=== PATIENT | female | born 1995 | race Caucasian/White ===

== ENCOUNTER → 2020-05-17 | Outpatient (CLI) | payer OTHER ==
--- NOTE | 2020-05-17 15:42 | US ---
EXAMINATION TYPE: US pelvic complete DATE OF EXAM: 05/17/2020 COMPARISON: NONE CLINICAL HISTORY: D25.9 LEIOMYOMA OF UTERUS. TECHNIQUE: Transabdominal (TA). Transabdominal sonographic images of the pelvis were acquired. Date of LMP: 04/17/20 EXAM MEASUREMENTS: Uterus: 7.9 x 3.7 x 4.3 cm Endometrial Stripe: 1.0 cm Right Ovary: 4.5 x 1.6 x 1.9 cm Left Ovary: 3.0 x 1.3 x 1.9 cm 1. Uterus: Anteverted, hypoechoic area 1.2 x 0.9 x 1.2cm, probable fibroid 2. Endometrium: wnl 3. Right Ovary: wnl 4. Left Ovary: wnl 5. Bilateral Adnexa: wnl 6. Posterior cul-de-sac: wnl IMPRESSION: Probable leiomyomatous change of the uterus.
== END | disposition home or self-care (01) ==
LOC: MERGE 15:00 → RADUSWWP 15:04
PROVIDERS: ATTEND Family Medicine
DX: D25.9 Leiomyoma of uterus, unspecified (principal)
CPT/HCPCS: 76856

== ENCOUNTER 2022-11-07 09:38 | Inpatient (IN) | payer BC ==
[2022-11-07] MEDS ORDERED: CARBOPROST TROMETHAMINE 250 MCG/ML 1 ML AMP IM PRN (10:34)
[2022-11-07] MEDS ORDERED: LIDOCAINE 0.5% (PF) 5 MG/ML (50 ML SDV) SQ PRN (10:34)
[2022-11-07] MEDS ORDERED: miSOPROStoL 200 MCG TAB PO PRN (10:34)
[2022-11-07] MEDS ORDERED: OXYTOCIN 10 UNIT/ML 1 ML VIAL IM PRN (10:34)
[2022-11-07] MEDS ORDERED: TRANEXAMIC ACID IN NACL,ISO-OS 1,000 MG in EMPTY BAG 1 BAG IV PRN (10:34)
[2022-11-07] MEDS ORDERED: METHYLERGONOVINE 0.2 MG/ML 1 ML AMP IM PRN (10:34)
[2022-11-07] MEDS ORDERED: TERBUTALINE 1 MG/ML VIAL SQ PRN (10:34)
[2022-11-07] MEDS ORDERED: OXYTOCIN 30 UNITS/500 ML NS 30 UNIT in SALINE 1 500ML.BAG IV SCH (10:45)
[2022-11-07] MEDS: LACTATED RINGERS 1,000 ML IV SCH ×2 (11:22→16:47)
[2022-11-07 11:43] LABS: Basophils % (A) 0 %; Eosinophils % (A) 0 %; HCT 42.9 % (34.0-46.0); HGB 14.3 gm/dL (11.4-16.0); Lymphocytes # (A) 1.3 k/uL (1.0-4.8); Lymphocytes % (A) 14 %; MCH 31.2 pg (25.0-35.0); MCHC 33.4 g/dL (31.0-37.0); MCV 93.3 fL (80.0-100.0); Mean Platelet Volume 8.5; Monocytes # (A) 0.5 k/uL (0-1.0); Monocytes % (A) 5 %; Neutrophils # (A) 7.2 k/uL (1.3-7.7); Neutrophils % (A) 79 %; Platelet Count 186 k/uL (150-450); RDW 12.7 % (11.5-15.5); WBC 9.1 k/uL (3.8-10.6)
--- NOTE | 2022-11-07 12:01 | P.HPOB ---
History of Present Illness H&P Date: 11/07/22 Chief Complaint: My water broke this morning. This is a 27-year-old female 1 para 0 EDC 11/09/2022 at 39-5/7 weeks' gestation. Patient states her water broke this morning, large gush of clear fluid. She denies vaginal bleeding or uterine contractions at this time. Fetus is been active throughout the . She has continued to leak fluid. Past medical history is significant for fibroids and vitiligo. Past surgical history tubes in the ears, wisdom teeth extracted, adenoidectomy. Current medications vitamins daily. ALLERGIES none known. Past social history patient is , her Pravin is present and involved. She works for the [employer] as a nurse. She has never been a smoker and denies alcohol or drug use. Family history hyperlipidemia, hypothyroidism, breast cancer, renal syndrome, scleroderma, sclerosis. Obstetric history is significant for negative group B strep cultures, negative urine culture, negative gonorrhea and chlamydia cultures, Pap smear normal. Blood type O positive, rubella status immune. VDRL testing, hepatitis B surface antigen HIV testing all negative. On exam patient is 5 foot 6 inches, 187 pounds, initial blood pressure slightly elevated at 158/97, repeat blood pressure normalized. General physical exam is within normal limits. Chest is clear in all champion. Cervix is 2-3 cm dilated, 60% effaced, -2 station, vertex presentation. Clear fluid noted on the perineal body. heart rate consistent with reactive NST. Impression: 39-5/7 weeks intrauterine , active spontaneous labor. All signs reassuring. Group B strep cultures negative. Plan: Oxytocin per hospital protocol. Close maternal and surveillance. Analgesic options reviewed. Anticipate normal spontaneous vaginal delivery. Review of Systems Constitutional: Reports as per [facility] Medications and Allergies Home Medications Medication Instructions Recorded Confirmed Type Levothyroxine Sodium [Synthroid] 25 mcg PO DAILY 11/07/22 11/07/22 History Allergies Allergy/AdvReac Type Severity Reaction Status Date / Time No Known Allergies Allergy Verified 11/07/22 10:21 Exam Vital Signs Temp Pulse Resp BP Pulse Ox 11/07/22 09:54 98 F 66 16 163/96 100 Intake and Output 11/06/22 11/07/22 11/07/22 22:59 06:59 14:59 Other: Weight 83.461 kg See dictation under HPI please Results Result Diagrams: 11/07/22 11:15 Assessment and Plan Assessment: 39-5/7 weeks intrauterine , early spontaneous labor. All signs reassuring. Plan: Oxytocin per hospital protocol. Close maternal and surveillance. Analgesic options reviewed. Anticipate normal spontaneous vaginal delivery. Time with Patient: Less than 30
[2022-11-07 12:06] LABS: Uric Acid 5.2 mg/dL (3.7-7.4)
[2022-11-07] MEDS ORDERED: SODIUM CHLORIDE 0.9% 100 ML BAG ONE (16:51)
[2022-11-07] MEDS ORDERED: ROPIVACAINE 5 MG/ML 20 ML AMPULE ONE (16:51)
[2022-11-07] MEDS ORDERED: fentaNYL (PF) 50 MCG/ML 5 ML AMP ONE (16:51)
[2022-11-07] MEDS ORDERED: diphenhydrAMINE 25 MG CAP PO PRN (22:52)
[2022-11-07] MEDS ORDERED: BENZOCAINE/MENTHOL SPRAY 1 GM/SPRAY AEROSOL TOPICAL PRN (22:52)
[2022-11-07] MEDS ORDERED: diphenhydrAMINE 50 MG/ML 1 ML VIAL IVP PRN ×2 (22:52)
[2022-11-07] MEDS ORDERED: ZOLPIDEM 5 MG TAB PO PRN (22:52)
[2022-11-07] MEDS ORDERED: SIMETHICONE 80 MG CHEWABLE PO PRN (22:52)
[2022-11-07] MEDS ORDERED: diphenhydrAMINE 50 MG CAP PO PRN (22:52)
[2022-11-07] MEDS ORDERED: HYDROCORTISONE 2.5% RECTAL CREAM 30 GM TUBE RECTAL PRN (22:52)
[2022-11-07] MEDS ORDERED: LANOLIN CREAM 5 GM TUBE TOPICAL PRN (22:52)
--- NOTE | 2022-11-07 22:52 | P.PROBDLV ---
Vaginal Delivery Note - . Vaginal Delivery Note: This is a 27-year-old 1 para 0 EDC 11/09/2022 at 39-5/7 weeks' gestation who presented earlier this morning with spontaneous amniorrhexis, clear fluid. Group B strep cultures negative, rubella status immune, blood type O positive. Please see dictated history and physical for details. Oxytocin was started and titrated per protocol. Epidural was placed per her request. She progressed well through the first stage of labor and became completely dilated at 2153 hrs. She began the second stage of labor at that time pushed very successfully in the dorsal lithotomy position. Ultimately the perineal body was prepped and draped in the usual sterile fashion. 's head delivered occiput anterior and she restituted accordingly. There was no nuchal cord noted. The left or anterior shoulder was gently delivered from underneath the pubic symphysis at which time the oropharynx, nasopharynx, and external nares were all bulb suctioned. Patient was officially delivered of a liveborn female at 2232 hours. Umbilical cord was doubly clamped and l igated, she was handed to waiting nurses for evaluation where scores of 9 and 9 at one and 5 minutes respectively were given. Placenta delivered spontaneously, it was inspected and noted to be intact with trivascular cord at 236 hours. Uterus is then massaged. Careful inspection of the cervix, vagina, perineum, periurethral, and perirectal areas no lacerations or defects. Total estimated blood loss 300 mL's. All sponge needle and enhancement counts are correct at the end of the procedure. Infant weighs 8 lbs. 0 oz. or 3625 g. Patient is allowed to begin the bonding experience in the LDR.
[2022-11-08 06:32] LABS: Basophils % (A) 0 %; Eosinophils % (A) 0 %; HCT 36.9 % (34.0-46.0); HGB 12.4 gm/dL (11.4-16.0); Lymphocytes # (A) 1.6 k/uL (1.0-4.8); Lymphocytes % (A) 11 %; MCH 31.1 pg (25.0-35.0); MCHC 33.6 g/dL (31.0-37.0); MCV 92.8 fL (80.0-100.0); Mean Platelet Volume 8.4; Monocytes # (A) 0.7 k/uL (0-1.0); Monocytes % (A) 5 %; Neutrophils # (A) 11.7 k/uL (1.3-7.7); Neutrophils % (A) 82 %; Platelet Count 146 k/uL (150-450); RBC 3.97 m/uL (3.80-5.40); RDW 13.1 % (11.5-15.5); WBC 14.2 k/uL (3.8-10.6)
--- NOTE | 2022-11-08 11:02 | P.DS ---
Providers Date of admission: 11/07/22 10:16 Expected date of discharge: 11/08/22 Attending physician: Suzanna Franks Primary care physician: Stated None Hospital Course: This is a 27-year-old female 1 para 0 EDC 11/09/2022 at 39-5/7 weeks' gestation who presented yesterday after having spontaneous amniorrhexis at home, clear fluid. remarkable for rubella status immune, group B strep cultures negative, blood type O+, please see admitting history and physical for details. Oxytocin was started and managed per hospital protocol epidural was ultimately placed per her request. Patient went on to deliver vaginally a liveborn female infant with scores of 9 and 9 at one and 5 minutes respectively. weight 8 lbs. 0 oz. or 3625 g. There was an estimated blood loss of 300 mL, no perineal lacerations encountered. Please see my dictated delivery note for details. This morning the patient is doing well. She is voiding, and bleeding, passing flatus without difficulty. Vital signs are stable and she is afebrile. Fundus is firm and in the midline, symmetric and 18 week size. Extremities are negative for edema. Chest is clear in all champion. Breasts are not engorged. Breast-feeding is going well. Breast pump has been ordered for the patient per her request. Patient is being discharged home later today in very good condition. She'll follow-up with me in the office in 3-4 weeks. I reminded her no intercourse, tampons or douching. We have discussed briefly options for contraception and we will review this further in the office. Assessment: Doing well first post day Patient Condition at Discharge: Good Plan - Discharge Summary Discharge Rx Participant: No New Discharge Prescriptions: No Action Levothyroxine Sodium [Synthroid] 25 mcg PO DAILY Discharge Medication List Levothyroxine Sodium [Synthroid] 25 mcg PO DAILY 11/07/22 [History] Follow up Appointment(s)/Referral(s): Suzanna Franks MD [STAFF PHYSICIAN] - 3 Weeks Discharge Disposition: HOME SELF-CARE
[2022-11-08] MEDS: SENNOSIDES-DOCUSATE SODIUM 1 EACH TAB PO SCH ×2 (15:55→21:37)
[2022-11-08] MEDS: LACTATED RINGERS 1,000 ML IV SCH (16:00)
[2022-11-08 16:02] VITALS: BP 137/83; PULSE 91; RESP 16; TEMP 97.8
--- NOTE | 2022-11-11 09:09 | P.MSEPDOC ---
Presenting Problems - Arrival Data Date of Arrival on Unit: 11/07/22 Time of Arrival on Unit: 09:35 Mode of Transport: Ambulatory - Complaint OB-Reason for Admission/Chief Complaint: Rule Out SROM Comment: SROM 10 am yesterday small leak, 8am today large gush Medical History - Information : 1 Para: 0 Term: 0 : 0 Abortions: Spontaneous or Elective: 0 Number of Living Children: 0 - Gestational Age Gestational Age by RYNE (wks/days): 39 Weeks and 5 Days Review of Systems - Review of Systems Constitutional: No problems Breast: No problems ENT: No problems Cardiovascular: No problems Respiratory: No problems Gastrointestinal: No problems Genitourinary: No problems Musculoskeletal: No problems Neurological: No problems Skin: No problems Vital Signs - Temperature Temperature: 97.8 F Temperature Source: Oral - Pulse Brachial Pulse Rate: 91 Pulse Assessment Method: Automatic Cuff - Respirations Respiratory Rate: 16 Oxygen Delivery Method: Room Air - Blood Pressure Right Arm Sitting Blood Pressure: 137/83 Blood Pressure Mean: 101 Blood Pressure Source: Automatic Cuff - Comment Vital Signs Comment: pt states she has "white coat syndrome" seriel blood pressures improving, PIH labwork ordered Medical Screen Scoring - Cervical Exam Dilation (cm): 1.5 Effacement (%): 50 Station: -3 Membranes: Ruptured - Uterine Contractions Frequency From (mins): 0 Frequency To (mins): 0 - Assessment - Baby A Baseline FHR: 130 Heart Rate - NICHD Category: Category I (Normal) NST: Reactive Physician Notification - Physician Notified Physician Notified Date: 11/07/22 Physician Notified Time: 10:18 Physician: Suzanna Franks Order Received: Yes (admit for augmentation with pitocin) Maternal Triage Index - Maternal Triage Index Presenting for scheduled procedure w/no complaint: No - Stat/Priority 1 Stat Priority 1: No - Urgent/Priority 2 Urgent Priority 2: No - Prompt/Priority 3 Prompt Priority 3: No - Non-Urgent/Priority 4 Non-Urgent Priority 4: Yes Criteria Met for Priority 4: 39 5/7 SROM Disposition - Disposition OB Disposition: Admit, Triage Discharge Date: 11/09/22 Discharge Time: 00:03 I agree with the RN Medical Screening Exam: Yes Case reviewed; plan agreed upon as documented in EMR&OBIX.: Yes Diagnosis: LOUSE-BORNE TYPHUS
== END 2022-11-09 00:03 | disposition home or self-care (01) | DRG 807 ==
LOC: FBPOP 09:38 → 4FBP 10:16
PROVIDERS: ADMIT Obstetrics & Gynecology; ATTEND Obstetrics & Gynecology
PROC: 10E0XZZ Delivery of Products of Conception, External Approach (ICD-10-PCS; principal; 2022-11-07)
DX: O42.02 Full-term premature rupture of membranes, onset of labor within 24 hours of rupture (principal); Z28.310 Unvaccinated for COVID-19; Z79.890 Hormone replacement therapy; Z3A.39 39 weeks gestation of pregnancy; Z37.0 Single live birth
CPT/HCPCS: 84450; 84460; 84550; 85025; 86850; 86900; 86901

== ENCOUNTER 2024-05-11 06:00 | Inpatient (IN) | payer BC ==
[2024-05-11] MEDS ORDERED: OXYTOCIN 10 UNIT/ML 1 ML VIAL IM PRN (06:49)
[2024-05-11] MEDS ORDERED: miSOPROStoL 200 MCG TAB PO PRN (06:49)
[2024-05-11] MEDS ORDERED: miSOPROStoL 200 MCG TAB RECTAL PRN (06:49)
[2024-05-11] MEDS ORDERED: METHYLERGONOVINE 0.2 MG/ML 1 ML AMP IM PRN (06:49)
[2024-05-11] MEDS ORDERED: CARBOPROST TROMETHAMINE 250 MCG/ML 1 ML AMP IM PRN (06:49)
[2024-05-11] MEDS ORDERED: TRANEXAMIC 1,000 MG/100ML-NACL 1,000 MG in EMPTY BAG 1 BAG IV PRN (06:49)
[2024-05-11] MEDS ORDERED: LIDOCAINE 0.5% (PF) 5 MG/ML (50 ML SDV) SQ PRN (06:49)
[2024-05-11] MEDS ORDERED: TERBUTALINE 1 MG/ML VIAL SQ PRN (06:49)
[2024-05-11 07:33] LABS: Basophils % (A) 0 %; Eosinophils # (A) 0.1 k/uL (0-0.7); Eosinophils % (A) 1 %; HCT 40.8 % (34.0-46.0); HGB 13.4 gm/dL (11.4-16.0); Lymphocytes # (A) 2.1 k/uL (1.0-4.8); Lymphocytes % (A) 21 %; MCH 30.7 pg (25.0-35.0); MCHC 32.9 g/dL (31.0-37.0); MCV 93.1 fL (80.0-100.0); Mean Platelet Volume 8.8; Monocytes # (A) 0.8 k/uL (0-1.0); Monocytes % (A) 7 %; Neutrophils % (A) 69 %; Platelet Count 203 k/uL (150-450); RBC 4.38 m/uL (3.80-5.40); RDW 13.2 % (11.5-15.5); WBC 10.1 k/uL (3.8-10.6)
[2024-05-11] MEDS: LACTATED RINGERS 1,000 ML IV SCH (07:35)
[2024-05-11] MEDS: OXYTOCIN 30 UNITS/500 ML NS 30 UNIT in SALINE 1 500ML.BAG IV SCH (07:50)
[2024-05-11] MEDS ORDERED: NALBUPHINE 10 MG/ML (10 ML MDV) IV PRN (08:36)
[2024-05-11] MEDS ORDERED: SODIUM CHLORIDE 0.9% 250 ML BAG ONE (11:18)
[2024-05-11] MEDS ORDERED: fentaNYL (PF) 50 MCG/ML 5 ML AMP ONE (11:18)
[2024-05-11] MEDS ORDERED: ROPIVACAINE 5 MG/ML 30 ML VIAL ONE (11:18)
[2024-05-11] MEDS ORDERED: HYDROCORTISONE 2.5% RECTAL CREAM 30 GM TUBE RECTAL PRN (12:35)
[2024-05-11] MEDS ORDERED: diphenhydrAMINE 50 MG/ML 1 ML VIAL IVP PRN ×2 (12:35)
[2024-05-11] MEDS ORDERED: LANOLIN CREAM 1 GM TUBE TOPICAL PRN (12:35)
[2024-05-11] MEDS ORDERED: diphenhydrAMINE 25 MG CAP PO PRN (12:35)
[2024-05-11] MEDS ORDERED: ZOLPIDEM 5 MG TAB PO PRN (12:35)
[2024-05-11] MEDS ORDERED: SIMETHICONE 80 MG CHEWABLE PO PRN (12:35)
[2024-05-11] MEDS ORDERED: BENZOCAINE/MENTHOL SPRAY 1 GM/SPRAY AEROSOL TOPICAL PRN (12:35)
[2024-05-11] MEDS ORDERED: diphenhydrAMINE 50 MG CAP PO PRN (12:35)
--- NOTE | 2024-05-11 12:35 | P.PROBDLV ---
Vaginal Delivery Note - . Vaginal Delivery Note: 28-year-old 2 para 1 at 39 weeks that presents to labor and delivery for induction of labor. Patient was admitted and Pitocin induction of labor was begun. Amniotomy was performed clear fluid was obtained. Patient made good progress through labor eventually requesting epidural. Epidural was placed without difficulty by the anesthesia department. Patient got minimal relief from her epidural and was noted to be completely dilated. With excellent maternal effort patient had a normal spontaneous vaginal delivery of a viable female infant at 1224, Apgars of 9 and 9 at 1 and 5 minutes respectively. Weight is pending currently after a 2-minute delay the umbilical cord was doubly clamped and cut. Splint was delivered spontaneously intact with a three-vessel cord being noted. Inspection the patient's vaginal vault a very superficial right labial laceration was appreciated this was noted to be hemostatic and no repair was completed. All counts noted be correct x 2 at the end of the delivery. Patient and infant tolerated delivery well and are resting comfortably.
[2024-05-11] MEDS: IBUPROFEN 800 MG TAB PO SCH (16:30)
[2024-05-11] MEDS: LEVOTHYROXINE 25 MCG TAB PO SCH (16:30)
[2024-05-11] MEDS: ACETAMINOPHEN TAB 500 MG TAB PO SCH (16:31)
[2024-05-11] MEDS: SENNOSIDES-DOCUSATE SODIUM 1 EACH TAB PO SCH (21:15)
[2024-05-12 00:47] VITALS: RESP 16
--- NOTE | 2024-05-12 08:22 | P.PNOBGVD ---
Subjective - Subjective Principal diagnosis: day #1 Interval history: Patient is feeling well this morning. She is ambulating and voiding without difficulty. Her lochia is noted to be moderate, breast-feeding is going well. She did have an elevated blood pressure this morning 140s over 80s, blood pressures were slightly elevated in addition during labor. Patient was quite uncomfortable though. Patient denies signs or symptoms of preeclampsia. Patient reports: Reports appetite normal, Reports voiding normally, Reports pain well controlled, Reports ambulating normally : doing well, nursing well Objective - Latest Vital Signs Latest vital signs: Vital Signs Temp Pulse Resp BP Pulse Ox 05/12/24 03:30 98.1 F 68 16 137/89 98 05/11/24 23:30 98.1 F 61 16 131/76 99 05/11/24 18:49 97.9 F 64 18 122/64 05/11/24 14:30 61 18 127/64 05/11/24 14:00 72 18 123/61 05/11/24 13:30 71 18 141/67 05/11/24 13:15 67 18 144/67 05/11/24 13:00 78 18 133/69 05/11/24 12:45 98.0 F 75 18 133/69 05/11/24 12:30 97.8 F 81 18 127/67 Intake and Output 05/11/24 05/12/24 05/12/24 22:59 06:59 14:59 Output Total 300 Balance -300 Output: Urine 300 Other: # Voids 1 1 - Exam Extremities: Present: normal, edema Abdomen: Present: normal appearance, soft Uterus: Present: normal, firm Assessment and Plan (1) Term Current Visit: Yes Status: Acute Code(s): Z34.90 - ENCNTR FOR SUPRVSN OF NORMAL , UNSP, UNSP TRIMESTER SNOMED Code(s): 71890125 (2) Status post vaginal delivery Current Visit: Yes Status: Acute Code(s): RKD1504 - SNOMED Code(s): 791326699 Plan: 28-year-old G2. Patient with slightly elevated blood pressures this morning 140s over 80s. No signs or symptoms of preeclampsia. Will monitor blood pressures this morning if they remain elevated preeclampsia labs will be ordered.
--- NOTE | 2024-05-12 12:16 | P.HPOB ---
History of Present Illness H&P Date: 05/11/24 Chief Complaint: IUP at 39 weeks, suspected LGA This is a 28-year-old 2 para 1 at 39-2/7 weeks that presents to labor and delivery for induction of labor. Patient has been receiving routine care which has been essentially uncomplicated. Infant has been ama suring large for gestational age therefore induction of labor was discussed and she agreed. On blood work this patient is up a type of O+, rubella status immune, hepatitis B surface engine negative, HIV negative, RPR is nonreactive, grew beta strep culture is negative. Review of Systems Constitutional: Denies chills, Denies fatigue, Denies fever Ears, nose, mouth and throat: Denies headache Cardiovascular: Reports leg edema Respiratory: Denies dyspnea Gastrointestinal: Denies nausea, Denies vomiting Genitourinary: Reports Past Medical History Past Medical History: Thyroid Disorder History of Any Multi-Drug Resistant Organisms: None Reported Past Surgical History: Adenoidectomy, Ear Surgery Additional Past Surgical History / Comment(s): tubes in ears, Gilman Teeth removed Past Anesthesia/Blood Transfusion Reactions: No Reported Reaction Past Psychological History: No Psychological Hx Reported Smoking Status: Never smoker Past Alcohol Use History: None Reported Past Drug Use History: None Reported - Past Family History Mother Additional Family Medical History / Comment(s): Scleroderma Medications and Allergies Home Medications Medication Instructions Recorded Confirmed Type Levothyroxine Sodium [Synthroid] 25 mcg PO DAILY 11/07/22 05/11/24 History Allergies Allergy/AdvReac Type Severity Reaction Status Date / Time No Known Allergies Allergy Verified 11/07/22 10:21 Exam Osteopathic Statement: *. No significant issues noted on an osteopathic structural exam other than those noted in the History and Physical/Consult. Vital Signs Temp Pulse Resp BP Pulse Ox 05/11/24 06:46 97.1 F L 57 L 18 143/80 99 Intake and Output 05/10/24 05/11/24 05/11/24 22:59 06:59 14:59 Other: Weight 90.718 kg In general this is a well-nourished well-developed female in no acute distress, breathing is nonlabored, abdomen is noted to be gravid and appropriate for gestational age, on cervical exam she is 4/50/-2 station amniotomy is performed and clear fluid was obtained. heart tones are noted to be category 1 and she is maxine irregularly. Results Result Diagrams: 05/11/24 06:40 Assessment and Plan (1) Term Current Visit: Yes Status: Acute Code(s): Z34.90 - ENCNTR FOR SUPRVSN OF NORMAL , UNSP, UNSP TRIMESTER SNOMED Code(s): 11586622 Plan: 28-year-old G2, P1 at 39+ weeks presents for induction of labor. Patient was begun on Pitocin for induction of labor per hospital protocol. Options for analgesia are discussed including nitrous, Nubain, epidural. She will consider. Anticipate spontaneous vaginal delivery later today.
[2024-05-13 07:52] VITALS: BP 138/87; PULSE 54; TEMP 98.2
--- NOTE | 2024-05-13 10:39 | P.DS ---
Providers Date of admission: 05/11/24 06:16 Expected date of discharge: 05/13/24 Attending physician: Angela Woodson Primary care physician: Stated None - Discharge Diagnosis(es) (1) Term Current Visit: Yes Status: Acute (2) Status post vaginal delivery Current Visit: Yes Status: Acute Hospital Course: This is a 28-year-old G2 now P2 that presented to labor and delivery at 39 weeks of for induction of labor. Patient had been receiving routine care with myself which has been essentially uncomplicated. Estimated weight was on the larger side therefore she elected induction of labor. Patient was admitted and Pitocin induction of labor was begun. Amniotomy was performed and clear fluid was obtained. Patient made progress through labor eventually becoming uncomfortable and requesting epidural. Epidural was placed without difficulty by the anesthesia department. Patient made good progress toward complete with minimal relief of her discomfort from the epidural. Patient began pushing and had a normal spontaneous vaginal delivery of a viable female at 1224, Apgars of 9 and 9 at 1 and 5 minutes respectively. No vaginal lacerations were appreciated during delivery. Patient's course has been essentially uneventful. Patient did have 2 elevated blood pressures of 140s over 80s, now consistently 130s over 80s. Patient denies signs or symptoms of preeclampsia. She is ambulating and voiding without difficulty. She denies any concerns. Would like discharge home. Lochia is noted to be minimal to moderate, breast-feeding is going well without difficulty. Patient Condition at Discharge: Good Plan - Discharge Summary New Discharge Prescriptions: No Action Levothyroxine Sodium [Synthroid] 25 mcg PO DAILY Discharge Medication List Levothyroxine Sodium [Synthroid] 25 mcg PO DAILY 11/07/22 [History] Follow up Appointment(s)/Referral(s): Angela Woodson DO [Doctor of Osteopathic Medicine] - 06/21/24 11:30 am Patient Instructions/Handouts: Vaginal Delivery (DC), Vaginal Delivery (GEN) Activity/Diet/Wound Care/Special Instructions: [id number] ibuprofen 600 mg or 3 tablets every 6 hours as needed for pain. Patient is to call the office to make a visit for 4 weeks. In addition patient is urged to check her blood pressures at home any elevations greater than 140/90 she is urged to call for follow-up. No tub baths or intercourse until 6 weeks . Discharge Disposition: HOME SELF-CARE
== END 2024-05-13 14:30 | disposition home or self-care (01) | DRG 807 ==
LOC: 4FBP 06:16
PROVIDERS: ADMIT Obstetrics & Gynecology Obstetrics; ATTEND Obstetrics & Gynecology Obstetrics
PROC: 10E0XZZ Delivery of Products of Conception, External Approach (ICD-10-PCS; principal; 2024-05-11)
PROC: 0HQ9XZZ Repair Perineum Skin, External Approach (ICD-10-PCS; 2024-05-11)
PROC: 10907ZC Drainage of Amniotic Fluid, Therapeutic from Products of Conception, Via Natural or Artificial Opening (ICD-10-PCS; 2024-05-11)
PROC: 3E033VJ Introduction of Other Hormone into Peripheral Vein, Percutaneous Approach (ICD-10-PCS; 2024-05-11)
DX: O26.893 Other specified pregnancy related conditions, third trimester (principal); Z37.0 Single live birth; O99.284 Endocrine, nutritional and metabolic diseases complicating childbirth; O70.0 First degree perineal laceration during delivery; E07.9 Disorder of thyroid, unspecified; Z79.890 Hormone replacement therapy; Z3A.39 39 weeks gestation of pregnancy; Z67.40 Type O blood, Rh positive
CPT/HCPCS: 85025; 86850; 86900; 86901